=== PATIENT | female | born 1955 | race Caucasian/White ===

== ENCOUNTER 2016-12-24 08:39 | Emergency (ER) | payer BC ==
[2016-12-24 08:45] VITALS: BP 104/62; PULSE 69; RESP 16; TEMP 97.7; O2SAT 97
[2016-12-24] MEDS ORDERED: FLUORESCEIN SODIUM 1 MG STRIP OP ONE (09:10)
[2016-12-24] MEDS ORDERED: PROPARACAINE 0.5% 15 ML OPHT DROP OP ONE (09:10)
--- NOTE | 2016-12-24 09:15 | EDPHY ---
H & P Time Seen by Provider: 12/24/16 09:07 HPI/ROS: CHIEF COMPLAINT: Right eye injury HISTORY OF PRESENT ILLNESS: 61-year-old female with up-to-date tetanus, no corrective lens use history, no anticoagulant use history, was reaching for noting needle this morning when and impacted her right medial eye and she noticed erythema to the medial aspect of the right sclera. No visual disturbance. No pain. No visual acuity changes. PHYSICAL EXAM (Prior to examination, patient consented to physical exam, hands were washed and my usual and customary physical exam procedures followed) 1) GENERAL: Well-developed, well-nourished, alert and oriented. Appears to be in no acute distress. 2) HEAD: Normocephalic 3) ENT: sclera anicteric 4) LUNGS: Breathing comfortably. 5) OCULAR EXAM: Visual Acuity: noted from Nurse's notes. Pupils:equal round and reactive to light EOMI Lids: no edema or swelling, upper and lower lids were everted and no foreign bodies were visualized, no areas of increased fluorescein uptake. Skin: no proptosis, no periorbital erythema or swelling, no vesicles, no pain with extraocular movements. Conjunctivae: not injected, no discharge, negative Kelli test. Subconjunctival hemorrhage present right medial sclera Cornea: exam with fluorescein shows an area of increased uptake medial aspect over subconjunctival hemorrhage. No corneal abrasion Anterior chamber:[normal, no hyphema or hypopyon Smoking Status: Never smoked Constitutional: Initial Vital Signs Temperature (C) 36.5 C 12/24/16 08:43 Heart Rate 69 12/24/16 08:43 Respiratory Rate 16 12/24/16 08:43 Blood Pressure 104/62 12/24/16 08:43 O2 Sat (%) 97 12/24/16 08:43 O2 Delivery Mode Room Air Allergies/Adverse Reactions: Sulfa (Sulfonamide Antibiotics) Allergy (Verified 12/24/16 08:42) Home Medications: Medication Instructions Recorded Ofloxacin 0.3% [Ocuflox 0.3%] 2 drops EACHEYE QID #1 opht.btl 12/24/16 MDM/Departure - [facility] ED Course/Re-evaluation: Patient has evidence of subconjunctival hemorrhage with no evidence of corneal abrasion, has a puncture wound with negative Kelli. Plan will be prophylactic antibiotics, follow up with Ophthalmology. She feels comfortable with this plan. Pain is controlled.Care of patient under supervision of secondary supervising physician Dr Ta . - Depart Disposition: Home, Routine, Self-Care Clinical Impression: Subconjunctival hemorrhage Qualifiers: Laterality: right Qualified Code(s): H11.31 - Conjunctival hemorrhage, right eye Condition: Good Instructions: Subconjunctival Hemorrhage (ED) Additional Instructions: Return to the ER if you develop eye pain, visual changes, or any other symptoms that concern you. Prescriptions: Ofloxacin 0.3% [Ocuflox 0.3%] 2 drops EACHEYE QID #1 opht.btl Referrals: Jose Drummond MD [Medical Doctor] - 1 day without fail
== END 2016-12-24 09:30 | disposition home or self-care (01) ==
DX: H11.31 Conjunctival hemorrhage, right eye (principal)

== ENCOUNTER → 2017-04-24 | Outpatient (CLI) | payer BC | LOC: BMCIMAGING 13:08 | PROVIDERS: ATTEND Obstetrics & Gynecology Gynecology | DX: Z12.31 Encounter for screening mammogram for malignant neoplasm of breast (principal) ==